=== PATIENT | male | born 1990 | race African-American/Black ===

== ENCOUNTER 2021-03-05 22:10 | Emergency (ER) | payer SELFPAY | END 2021-03-05 22:25 | LOC: BURERS 22:10 | DX: F12.10 Cannabis abuse, uncomplicated (principal) | CPT/HCPCS: 99283 ==

== ENCOUNTER 2022-05-28 13:44 | Emergency (ER) | payer OTHER, SELFPAY ==
[2022-05-28] MEDS ORDERED: Ibuprofen 800 MG TAB ONE (13:52)
== END 2022-05-28 14:14 | disposition home or self-care (01) ==
LOC: BURERS 13:44 → EEVIPCON 13:44 → BURERS 14:14
DX: U07.1 COVID-19 (principal)
CPT/HCPCS: 71045